=== PATIENT | female | born 1960 | race Caucasian/White ===

== ENCOUNTER 2021-01-30 11:11 | Day surgery (SDC) | payer BC ==
[2021-01-27 14:54] VITALS: BMI 21.7
[2021-01-30] MEDS ORDERED: SODIUM CHLORIDE 0.9% 500 ML 500 ML IV ONE (11:50)
[2021-01-30 12:03] VITALS: TEMP 98.4
[2021-01-30] MEDS ORDERED: fentaNYL (PF) 50 MCG/ML 2 ML AMP ONE (12:20)
[2021-01-30] MEDS: BENZOCAINE SPRAY 1 CAN MUCOUS MEM ONE ×2 (12:33→12:36)
[2021-01-30] MEDS: fentaNYL (PF) 50 MCG/ML 2 ML AMP IV ONE ×2 (12:36→12:38)
[2021-01-30] MEDS: MIDAZOLAM 2 MG/2 ML VIAL IV ONE ×2 (12:36→12:38)
--- NOTE | 2021-01-30 13:12 | P.TEE ---
Indications for Procedure(s): Right atrial mass Date of Procedure: 01/30/21 Preoperative Diagnosis: Right atrial mass Postoperative Diagnosis: The same Procedure(s) Performed: JUAN Description of Procedure(s): This is a 60-year-old female with history of ovarian cancer status post chemotherapy was found to be a masslike lesion in the right atrium. The transthoracic echo also showed a mass. Patient is advised to have JUAN examina tion for further evaluation. INDICATION: Assess right atrial mass CONSENT:. Informed consent is obtained from the patient verbally PROCEDURE: Patient was brought to the lab in a fasting state. She was prepped and draped in the usual fashion. The throat was sprayed with Hurricaine. Patient was given 3 mg of Versed and 75 fentanyl for sedation. A lubricated Omni probe was introduced into the oropharynx and was advanced into the esophagus and multiple views were obtained. Patient tolerated the procedure well. The color pulse and continuous-wave Doppler studies were performed. Saline contrast bubble injections also performed FINDINGS:. The mitral valve appeared to be normal with mild regurgitation. The aortic valve is tricuspid and appeared to be normal with minimal regurgitation. Tricuspid valve appeared to be normal and pulmonic valve appeared to be normal. There is a masslike circular lesion seemed to be attached to the junction of the superior vena cava and lateral wall of the right atrium. This is a smoker appearance circular in shape. The size is difficult to measure. This is not obstructing the flow in the tricuspid valve. The anterior septum is intact. No shunt noted across aortic septum. Saline contrast bubble injection did not reveal any crossing of the bowels. Left ventricle function appeared within normal. IMPRESSION: #1. Right atrial mass seen. The junction of the inferior vena cava on the lateral wall of the right ventricle. It is a circular and smoke. The nature of the mass is not clear. Rule out malignancy #2. Normal valvar funct ion #3. Normal LV function #4. No clot in left atrial appendage. #5. No PFO PLAN: We will send the CD for second opinion to [facility]. Meanwhile patient will continue current medical therapy
[2021-01-30] MEDS ORDERED: SODIUM CHLORIDE 0.9% 1,000 ML IV SCH (13:15)
[2021-01-30 13:17] VITALS: RESP 16
[2021-01-30 14:21] VITALS: BP 116/69; PULSE 58
== END 2021-01-30 14:30 | disposition home or self-care (01) ==
LOC: CATHCVL 11:11
PROVIDERS: ATTEND Internal Medicine Cardiovascular Disease
DX: I10 Essential (primary) hypertension (principal); E78.5 Hyperlipidemia, unspecified; I35.1 Nonrheumatic aortic (valve) insufficiency; I48.0 Paroxysmal atrial fibrillation; Z85.038 Personal history of other malignant neoplasm of large intestine; Z92.21 Personal history of antineoplastic chemotherapy; Z92.3 Personal history of irradiation; Z85.43 Personal history of malignant neoplasm of ovary; E78.00 Pure hypercholesterolemia, unspecified; R09.89 Other specified symptoms and signs involving the circulatory and respiratory systems; I25.10 Atherosclerotic heart disease of native coronary artery without angina pectoris; Z82.49 Family history of ischemic heart disease and other diseases of the circulatory system; Z79.899 Other long term (current) drug therapy
CPT/HCPCS: 93312; 93320; 93325; 87635; J2250; J3010